=== PATIENT | female | born 1940 | race Caucasian/White ===

== ENCOUNTER → 2018-10-15 15:51 | Outpatient (CLI) | payer MEDICARE, SELFPAY | PROVIDERS: Family Provider Internal Medicine; PCP Internal Medicine; Referring Provider Otolaryngology Otolaryngology/Facial Plastic Surgery; Visit Provider Otolaryngology Otolaryngology/Facial Plastic Surgery | DX: J32.9 Chronic sinusitis, unspecified (principal) | CPT/HCPCS: 87070; 87077; 87205 ==

== ENCOUNTER → 2018-11-06 | Outpatient (CLI) | payer MEDICARE, SELFPAY ==
[2018-11-06 15:53] VITALS: BMI 34.2
== END | disposition home or self-care (01) ==
LOC: MTRAD 16:16
PROVIDERS: Family Provider Internal Medicine; PCP Internal Medicine; Referring Provider Chiropractor; Visit Provider Chiropractor
DX: M99.03 Segmental and somatic dysfunction of lumbar region (principal)
CPT/HCPCS: 72100

== ENCOUNTER 2018-12-30 09:00 | Outpatient (RCR) | payer MEDICARE, SELFPAY ==
[2018-11-12 09:09] VITALS: BMI 34.2
--- NOTE | 2018-12-03 11:21 | HP.PTEVAL ---
Patient's Visit Information ANDI SAENZ is a 78 year old F referred to Physical Therapy by Judi Gomez DC with a diagnosis of Spondylolisthesis. Date of Evaluation: 12/03/18 Physical Therapist: Jaret Mixon DPT, OCS, CSCS - Visit Plan Frequency: 2x /Week Duration: 4-6 Weeks Plan: 2x/week for 4-6 weeks... 1. roll and stretch hip flexors adn teach HE. 2. flexion mobs ad flexion ROM L/S. 3. NS DLS especially in standing and teach for HEP. Consider R heel lift if LLD persists with chiropractic. - Subjective Findings: cards and sewing and reading. Pain has been there for years but worsening, can only walk 5 minutes. does grocery shopping. This keeps her from exercising, wants to ride recumbent which she is afraid to try. Hard to be up long enough to clean. Lacks energy. Never been a good taffy puller. Pain is L LB and L leg. Got steroid pack Saturday and it is helping. Last week pain was up to 8/10 with walking and comfortable at rest. Has to hunch over if keeps walking. Feet are numb from diabetic neuropathy. Sleep is OK. Some days hard to get dressed, standing to shower and do hair is too much. Have back problem and sciatica in L leg now but has been in right leg. Worse with walking too far and then she has to sit or stop and stand. Comfortable when sitting. Hobbies are sitting anyway, enjoys making. Has grandchildren and wants to be able to walk and see them. X rays show spondylolisthesis. Sent over by Dr. Knowlse - Pain L LBP and leg Pain Intensity (Out of 10): 0 Pain Intensity Range: 0, 5 Comment: with walking - Objective L leg slighty longer WB and NWB ? inch. Posture is extreme lordosis adn kyphotic thoracic spine. Walks I and trasnfers I to adn fro sit and supine today, comfortable on back. Hip flexors adn HS is tight moderately. L/S AROM ext min limited upper thoracic spine. flexion mod limtied lower L/S, SB are OK, slight discomfort with ext. reflexes 2/3 patella adna chilles. sensation LE WNL to gross light touch. Strength LE 3+/h hips, 4- knee flexiona dn extensiona dn ankle motions. - Balance Scores Functional Gait Assessment Score: 25 % Disability: 16.6700 - Goals Goal 1:: Patient able to walk 15 minutes without increased pain Goal Time Frame: 4-6 Weeks Goal 2:: I approp HEP to minimize future problems. Goal Time Frame: 4-6 Weeks Goal 4:: Pt feel 75% better with pain < 21/10 at all times. 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 Goal Time Frame: 4-6 Weeks - Rehabilitation Potential Physical Therapy Diagnosis: DDD, spondylolisthesis adn pain with walking. Rehabilitation Potential: Fair - Anticipated Interventions Patient/Client Instruction: Educate patient on: Condition, Plan of Care For the Purpose of:: To decrease pain, To increase ROM, To improve performance and independence with ADL's Therapeutic Exercise to Include: Strength training, Flexibilty training, Passive ROM, Active ROM, Dynamic Lumbar Stabilization For the Purpose of:: To decrease pain, To increase ROM, To improve muscle performance and motor function, To improve ability of physical actions for home/community/work/leisure, To improve gait and locomotor functions Manual Therapy Techniques to Include: Mobilization For the Purpose of:: To increase ROM Thermo therapy (hot pack): Yes For the Purpose of:: To decrease pain Thank you for the opportunity to evaluate your patient. For Medicare and Medicare HMO plans, please review the plan of care and approve it. It will need to be FAXED BACK to us at [phone] for Medicare purposes. For Medicare only, by signing this I certify the plan of care. Please let me know if there are questions or concerns regarding this plan of care. Physician Signature: Date:
--- NOTE | 2019-01-05 11:00 | HP.PTDCSUM_ITS ---
HP - PT D/C Summary It has been my pleasure to treat ANDI SAENZ under orders from Judi Gomez DC, for the diagnosis of Spondylolisthesis for a total of 9 visit(s). Discharge Date: 01/05/19 Please see the following information for a summary of their discharge status. - Subjective Subjective: Pain over weekend to 02/28. Does not like bridges. Most exercises feel good. Piriformis stretch and bridges. Not focussing on NS position as much as she shoud. Daughter is not doing well medically. Has not seen Dr. Gomez lately but they are not helping. rode recumbent one time and felt good afterward but weather limits. Has not been on bike at home. - Pain L LBP and leg Pain Intensity (Out of 10): 5 - Overall Improvement % Improvement: 0 - Objective Objective/Function: Ext L/S very limited adn increases pain. Flexion slow and limited segmentally in lumbar spine. SB without pain. Focus on NS in standing decreases pain. OVERALL NOT IMPROVING SUBJECTIVELY DESPITE DOING THE RIGHT EX. - Goals Goal 1:: Patient able to walk 15 minutes without increased pain Goal Progress: Not Progressing Goal 2:: I approp HEP to minimize future problems. Goal Progress: Goal Met Goal 4:: Pt feel 75% better with pain < 21/10 at all times. 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 Goal Progress: Not Progressing - Plan Plan: Pt t o schedule back with doctor for other options(efrain managemnt injections?) - D/C Information Discharge Comments: Not improving subjectively adn will contact doctor regarding next step. Will continue HEP. If there are questions or concerns regarding this patient's physical therapy, please feel free to call me at [phone]. Thank you for the referral of this patient. Sincerely, Jaret Mixon, DPT, OCS, CSCS
== END 2018-12-30 19:00 | disposition home or self-care (01) ==
LOC: PT 09:00
PROVIDERS: Family Provider Internal Medicine; PCP Internal Medicine; Referring Provider Chiropractor; Visit Provider Chiropractor
DX: M43.10 Spondylolisthesis, site unspecified (principal); M51.36 Other intervertebral disc degeneration, lumbar region; M99.05 Segmental and somatic dysfunction of pelvic region
CPT/HCPCS: 97110; 97162

== ENCOUNTER → 2019-09-17 09:26 | Outpatient (CLI) | payer MEDICARE, SELFPAY ==
[2018-11-12 09:09] VITALS: BMI 34.2
--- NOTE | 2019-09-17 09:47 | MRI_ITS ---
STUDY: MRI LUMBAR SPINE WITHOUT CONTRAST REASON FOR EXAM: Female, 78 years old. chronic lower back pain radiates into legs bilaterally R and gt;L TECHNIQUE: Standardized fat and water weighted pulse sequences were obtained in the sagittal and axial planes. COMPARISON: X-ray 11/06/2018 FINDINGS: T12-L1: Normal endplates. Normal disc height, hydration and morphology. Normal bilateral facet joints. Normal central canal and bilateral lateral recesses. Normal bilateral intervertebral neural foramina. Normal lumbar lordosis. There is no substantial scoliosis. Normal conus medullaris that terminates at the L1/L2. L1-2: Normal endplates. Normal disc height, hydration and morphology. Normal bilateral facet joints. Normal central canal and bilateral lateral recesses. Normal bilateral intervertebral neural foramina. L2-3: Normal endplates. Normal disc height, hydration and morphology. Normal bilateral facet joints. Normal central canal and bilateral lateral recesses. Normal bilateral intervertebral neural foramina. L3-4: Moderate bilateral facet hypertrophy and severe ligament flavum hypertrophy. Moderate broad disc protrusion produces moderate spinal stenosis with moderate bilateral lateral recess stenosis with abutment of the L4 nerve roots bilaterally and moderate lateral neural foraminal stenosis with abutment of the exiting L3 nerve roots bilaterally. L4-5: Moderate bilateral facet hypertrophy and severe ligament flavum hypertrophy. Large broad disc protrusion produces severe spinal stenosis with severe bilateral lateral recess stenosis with effacement of the L5 nerve roots bilaterally and moderate bilateral neural foraminal stenosis with abutment of the exiting L4 nerve roots bilaterally. L5-S1: Severe bilateral facet hypertrophy. 5 mm of anterolisthesis of L5 on S1 with a large broad disc protrusion produces severe spinal stenosis with severe bilateral lateral recess stenosis with effacement of the S1 nerve roots bilaterally and moderate bilateral neural foraminal stenosis with abutment of the exiting L5 nerve roots bilaterally. Rudimentary disc at S1/S2. Parapelvic cysts of both kidneys. MRI/Spine Lumbar (Routine) IMPRESSION: Multilevel degenerative changes, as described above. Electronically Signed: Amandeep Logan MD at 17:28 EST Tel , Service support ,
== END ==
PROVIDERS: PCP Internal Medicine; Referring Provider Nurse Practitioner Family; Visit Provider Nurse Practitioner Family
DX: M51.17 Intervertebral disc disorders with radiculopathy, lumbosacral region (principal); M47.27 Other spondylosis with radiculopathy, lumbosacral region; M46.96 Unspecified inflammatory spondylopathy, lumbar region; M48.07 Spinal stenosis, lumbosacral region
CPT/HCPCS: 72148

== ENCOUNTER 2020-08-12 12:55 | Outpatient (RCR) | payer MEDICARE, SELFPAY ==
[2020-04-21 07:25] VITALS: BMI 35.2
== END 2020-08-15 23:59 ==
LOC: IMMUN 12:55
PROVIDERS: PCP Internal Medicine; Visit Provider Family Medicine
DX: Z23 Encounter for immunization (principal)
CPT/HCPCS: 0011A; 0012A; 91301

== ENCOUNTER → 2022-10-18 | Outpatient (CLI) | payer MEDICARE, SELFPAY ==
[2022-10-18 12:51] LABS: Protein, Urine (Random) 11.4 mg/dL (<11.9); Protein:Creat Ratio 100 mg/g CRE (0-200)
[2022-10-18 13:08] LABS: Albumin, Serum 3.5 g/dL (3.2-5.0); BUN 20 mg/dL (7-18); BUN/Creat Ratio 13.9 RATIO (10-20); Calcium,Total 9.5 mg/dL (8.5-10.1); Chloride 104 mmol/L (98-107); Creatinine, Serum 1.44 mg/dL (0.55-1.02); EST Glomerular Filtration Rate 37 mL/min (>60); Est Glom Filt Rate - Afr Amer 45 mL/min (>60); Glucose 102 mg/dL (74-106); PTHIN 89.5 pg/mL (18.4-80.1); Phosphorus 3.1 mg/dL (2.5-4.9); Sodium Level 139 mmol/L (136-145)
== END | disposition home or self-care (01) ==
LOC: POLAB3 10:48
PROVIDERS: PCP Internal Medicine; Visit Provider Internal Medicine Nephrology
DX: N18.32 Chronic kidney disease, stage 3b (principal)
CPT/HCPCS: 36415; 80069; 82570; 83970; 84156

== ENCOUNTER → 2023-04-08 | Outpatient (CLI) | payer MEDICARE, SELFPAY ==
[2023-04-08 15:01] LABS: Hematocrit 33.8 % (37-47); Hemoglobin 10.4 g/dL (12.0-15.0); Mean Corp Hgb Conc 30.8 g/dL (32-36); Mean Corpuscular Hgb 24.7 pg (27.0-32.0); Mean Corpuscular Volume 80.3 fL (81-99); Mean Platelet Vol. 11.7 fl (6.2-12.0); Platelet Count 379 K/mm3 (150-450); RBC Distribution Width CV 18.6 % (11.6-14.6); RBC Distribution Width SD 53.8 fl (35.1-43.9); Red Blood Count 4.21 M/mm3 (4.2-5.4); White Blood Count 11.1 K/mm3 (4.4-11.0)
[2023-04-08 15:27] LABS: Albumin, Serum 3.5 g/dL (3.2-5.0); BUN 18 mg/dL (7-18); BUN/Creat Ratio 13.3 RATIO (10-20); Calcium,Total 9.3 mg/dL (8.5-10.1); Chloride 104 mmol/L (98-107); Creatinine, Serum 1.35 mg/dL (0.55-1.02); EST Glomerular Filtration Rate 40 mL/min (>60); Est Glom Filt Rate - Afr Amer 48 mL/min (>60); Glucose 111 mg/dL (74-106); Phosphorus 3.2 mg/dL (2.5-4.9); Sodium Level 139 mmol/L (136-145)
== END | disposition home or self-care (01) ==
LOC: LAB 13:57
PROVIDERS: PCP Internal Medicine; Referring Provider Internal Medicine Nephrology; Visit Provider Internal Medicine Nephrology
DX: N18.32 Chronic kidney disease, stage 3b (principal); D50.9 Iron deficiency anemia, unspecified
CPT/HCPCS: 36415; 80069; 85027

== ENCOUNTER → 2023-04-23 | Outpatient (CLI) | payer MEDICARE, SELFPAY ==
--- NOTE | 2023-04-23 11:04 | US_ITS ---
STUDY: RENAL ULTRASOUND - COMPLETE REASON FOR EXAM: Female, 82 years old. CHRONIC KIDNEY DISEASE TECHNIQUE: Ultrasound evaluation of the kidneys was performed with real-time and static diaz-scale imaging. COMPARISON: None. FINDINGS: RIGHT KIDNEY: with mild renal atrophy. The right kidney measures 7.7 cm x 3.5 cm x 3.2 cm. There is diffuse thinning of the renal cortex. The renal cortex measures 0.9 cm. There is no right renal mass or cyst. There are no right renal calculi. There is no right hydronephrosis. DISTAL RIGHT URETER: There is non-visualization of the distal right ureter. There is no demonstrated right ureterovesical junction calculus. There is no demonstrated right ureteral jet. LEFT KIDNEY: Normal location of the left kidney, which is normal in size. The left kidney measures 8.6 cm x 4.7 cm x 4.5 cm. There is a normal cortex of the left kidney. The renal cortex measures 1.0 cm. There is no left renal mass or cyst. There are no left renal calculi. There is no left hydronephrosis. DISTAL LEFT URETER: There is non-visualization of the distal left ureter. There is no demonstrated left ureterovesical junction calculus. There is a visualized left ureteral jet. BLADDER: The distended urinary bladder has a volume of 229 ml. There is a normal wall thickness of the distended urinary bladder. There is no demonstrated mass within the urinary bladder. There are no demonstrated bladder calculi. US/Kidney and Bladder IMPRESSION: Mild degree of right renal atrophy. Electronically Signed: Michael Salinas MD at 15:16 EDT ,
== END | disposition home or self-care (01) ==
LOC: US 11:04
PROVIDERS: PCP Internal Medicine; Referring Provider Internal Medicine Nephrology; Visit Provider Internal Medicine Nephrology
DX: N18.32 Chronic kidney disease, stage 3b (principal)
CPT/HCPCS: 76770

== ENCOUNTER → 2023-12-26 | Outpatient (CLI) | payer MEDICARE, SELFPAY ==
--- NOTE | 2023-12-26 14:14 | STRESSREP ---
Stress Test Report Exercise myocardial perfusion stress test. 83-year-old lady with a history of fatigue and dyspnea Stress protocol: Resting EKG demonstrates normal sinus rhythm with a rate of 65 bpm resting blood pressure is 142/78 mmHg. The patient exercised according to the regular Baljit protocol for a total duration of 4 minutes attaining a maximum heart rate of 115 bpm which was 84% of maximum predicted heart rate; the maximum workload was 7 metabolic equivalents. At rest there were no ST or T wave changes noted to suggest ischemia and at peak exercise upsloping ST changes only were noted which did not meet the criteria for ischemia. No clinical angina was noted the test was terminated due to the target heart rate being achieved/fatigue. The peak blood pressure was 170/80 mmHg. Rate-pressure product was 14,800. Myocardial perfusion protocol. 11.9 mCi of technetium 99m sestamibi was injected at rest. The patient exercised according to regular Baljit protocol for total duration of 4 minutes and at peak exercise 34.7 mCi of technetium 99m sestamibi was injected stress images were obtained stress and rest images were reconstructed in comparing the short axis vertical long and horizontal long axis. Gated images were also obtained. Perfusion SPECT analysis: Review of the stress images demonstrate normal uptake of tracer noted in all areas of the myocardium. The resting images similarly demonstrate normal uptake of tracer noted in all areas of the myocardium. No areas of reversibility are noted to suggest ischemia no previous infarct was noted. Gated SPECT analysis: The gated ejection fraction is 81%. Conclusion: Normal exercise myocardial perfusion stress test at a moderate workload Preserved ejection fraction.
== END | disposition home or self-care (01) ==
PROVIDERS: PCP Internal Medicine; Referring Provider Nurse Practitioner Gerontology; Visit Provider Nurse Practitioner Gerontology
DX: R06.02 Shortness of breath (principal); R53.83 Other fatigue
CPT/HCPCS: 78452; 93017; A9500; A4216

== ENCOUNTER → 2024-03-04 | Outpatient (CLI) | payer MEDICARE, SELFPAY ==
[2024-03-04 09:31] LABS: Hematocrit 49.3 % (37-47); Hemoglobin 16.2 g/dL (12.0-15.0); Mean Corp Hgb Conc 32.9 g/dL (32-36); Mean Corpuscular Hgb 31.4 pg (27.0-32.0); Mean Corpuscular Volume 95.5 fL (81-99); Mean Platelet Vol. 11.6 fl (6.2-12.0); Platelet Count 244 K/mm3 (150-450); RBC Distribution Width CV 13.8 % (11.6-14.6); RBC Distribution Width SD 48.1 fl (35.1-43.9); Red Blood Count 5.16 M/mm3 (4.2-5.4); White Blood Count 8.8 K/mm3 (4.4-11.0)
[2024-03-04 09:44] LABS: Albumin, Serum 3.5 g/dL (3.2-5.0); BUN 20 mg/dL (7-18); Calcium,Total 9.3 mg/dL (8.5-10.1); Chloride 108 mmol/L (98-107); Creatinine, Serum 1.66 mg/dL (0.55-1.02); EST Glomerular Filtration Rate 31 mL/min (>60); Est Glom Filt Rate - Afr Amer 38 mL/min (>60); Glucose 173 mg/dL (74-106); Iron 153 ug/dL (50-170); Iron Binding Capacity,Total 377 ug/dL (250-450); PERCENT IRON SATURATION 40.6 % (15.0-55.0); Phosphorus 3.3 mg/dL (2.5-4.9); Sodium Level 139 mmol/L (136-145)
[2024-03-04 10:56] LABS: Microalbumin,Random Urine 7.6 mg/L (NO RANGE EST.); Microalbumin:Creatinine Ratio 10.3 mg/g CRE (<30 mg/g CRE); Protein, Urine (Random) 8.7 mg/dL (<11.9); Protein:Creat Ratio 117 mg/g CRE (0-200)
[2024-03-05 04:44] LABS: Ferritin 58 ng/mL (8-252)
== END | disposition home or self-care (01) ==
LOC: POLAB3 09:02
PROVIDERS: PCP Internal Medicine; Referring Provider Internal Medicine Nephrology; Visit Provider Internal Medicine Nephrology
DX: E11.22 Type 2 diabetes mellitus with diabetic chronic kidney disease (principal); E11.40 Type 2 diabetes mellitus with diabetic neuropathy, unspecified; N18.32 Chronic kidney disease, stage 3b; D50.9 Iron deficiency anemia, unspecified
CPT/HCPCS: 36415; 80069; 82043; 82570; 82728; 83540; 83550; 83970; 84156; 85027

== ENCOUNTER → 2024-03-31 | Outpatient (CLI) | payer MEDICARE, SELFPAY ==
[2024-03-31 15:16] LABS: Anion Gap 4 (5-15); BUN 19 mg/dL (7-18); BUN/Creat Ratio 12.8 RATIO (10-20); Calcium,Total 9.4 mg/dL (8.5-10.1); Chloride 108 mmol/L (98-107); Creatinine, Serum 1.48 mg/dL (0.55-1.02); EST Glomerular Filtration Rate 36 mL/min (>60); Est Glom Filt Rate - Afr Amer 43 mL/min (>60); Glucose 148 mg/dL (74-106); Potassium 3.9 mmol/L (3.5-5.1); Sodium Level 139 mmol/L (136-145)
[2024-03-31 16:47] LABS: Microalbumin,Random Urine 8.9 mg/L (NO RANGE EST.); Microalbumin:Creatinine Ratio 23.3 mg/g CRE (<30 mg/g CRE)
== END | disposition home or self-care (01) ==
LOC: LAB 13:40
PROVIDERS: PCP Internal Medicine; Referring Provider Internal Medicine Nephrology; Visit Provider Internal Medicine Nephrology
DX: N17.9 Acute kidney failure, unspecified (principal)
CPT/HCPCS: 36415; 80048; 82043; 82570

== ENCOUNTER → 2024-09-03 | Outpatient (CLI) | payer MEDICARE, SELFPAY ==
[2024-09-03 12:42] LABS: Hematocrit 47.2 % (37-47); Hemoglobin 15.7 g/dL (12.0-15.0); Mean Corp Hgb Conc 33.3 g/dL (32-36); Mean Corpuscular Hgb 30.8 pg (27.0-32.0); Mean Corpuscular Volume 92.7 fL (81-99); Mean Platelet Vol. 11.1 fl (6.2-12.0); Platelet Count 215 K/mm3 (150-450); RBC Distribution Width CV 14.5 % (11.6-14.6); RBC Distribution Width SD 49.2 fl (35.1-43.9); Red Blood Count 5.09 M/mm3 (4.2-5.4); White Blood Count 11.8 K/mm3 (4.4-11.0)
[2024-09-03 13:04] LABS: PTHIN 114.7 pg/mL (18.4-80.1)
[2024-09-03 13:11] LABS: Albumin, Serum 3.7 g/dL (3.2-5.0); BUN 20 mg/dL (7-18); BUN/Creat Ratio 14.7 RATIO (10-20); Calcium,Total 10.2 mg/dL (8.5-10.1); Chloride 105 mmol/L (98-107); Creatinine, Serum 1.36 mg/dL (0.55-1.02); EST Glomerular Filtration Rate 39 mL/min (>60); Est Glom Filt Rate - Afr Amer 48 mL/min (>60); Glucose 198 mg/dL (74-106); Microalbumin,Random Urine 29.2 mg/L (NO RANGE EST.); Microalbumin:Creatinine Ratio 48.4 mg/g CRE (<30 mg/g CRE); Phosphorus 3.7 mg/dL (2.5-4.9); Potassium 4.2 mmol/L (3.5-5.1); Sodium Level 138 mmol/L (136-145)
== END | disposition home or self-care (01) ==
LOC: LAB 12:10
PROVIDERS: PCP Internal Medicine; Referring Provider Internal Medicine Nephrology; Visit Provider Internal Medicine Nephrology
DX: E11.22 Type 2 diabetes mellitus with diabetic chronic kidney disease (principal); E11.40 Type 2 diabetes mellitus with diabetic neuropathy, unspecified; N18.32 Chronic kidney disease, stage 3b
CPT/HCPCS: 36415; 80069; 82043; 82570; 83970; 85027

== ENCOUNTER → 2025-05-27 | Outpatient (CLI) | payer MEDICARE, SELFPAY ==
[2025-05-27 11:19] LABS: Albumin, Serum 4.1 g/dL (3.4-4.8); Anion Gap 9 (5-15); BUN 32 mg/dL (4-19); BUN/Creat Ratio 18.8 RATIO (10-20); Calcium,Total 10.1 mg/dL (7.6-11.0); Carbon Dioxide 24.2 mmol/L (21.0-32.0); Chloride 103 mmol/L (98-108); Glucose 148 mg/dL (70-99); Potassium 5.2 mmol/L (3.3-5.1)
== END | disposition home or self-care (01) ==
PROVIDERS: PCP Internal Medicine; Referring Provider Internal Medicine Nephrology; Visit Provider Internal Medicine Nephrology
DX: N18.32 Chronic kidney disease, stage 3b (principal)
CPT/HCPCS: 36415; 80069

== ENCOUNTER → 2025-06-21 | Outpatient (CLI) | payer MEDICARE, SELFPAY ==
[2025-06-21 15:27] LABS: Anion Gap 11 (5-15); BUN 31 mg/dL (4-19); BUN/Creat Ratio 18.1 RATIO (10-20); Calcium,Total 10.2 mg/dL (7.6-11.0); Carbon Dioxide 24.7 mmol/L (21.0-32.0); Chloride 106 mmol/L (98-108); Glucose 147 mg/dL (70-99); Potassium 4.8 mmol/L (3.3-5.1)
== END | disposition home or self-care (01) ==
LOC: MTLAB 13:28
PROVIDERS: PCP Internal Medicine; Referring Provider Internal Medicine Nephrology; Visit Provider Internal Medicine Nephrology
DX: N18.9 Chronic kidney disease, unspecified (principal)
CPT/HCPCS: 36415; 80048